=== PATIENT | male | born 1950 ===

== ENCOUNTER 2020-07-21 10:16 | Day surgery (SDC) | payer MEDICARE, BC ==
[2020-07-21] VITALS (10 sets, daily range): BP systolic 151–177; BP diastolic 85–105; PULSE 63–73; TEMP 97.4–97.9
[~2020-07-21] VITALS: Ht 177.8 cm; Wt 83.3 kg
[2020-07-21] MEDS ORDERED: ASPIRIN 32325 MG/TAB PO (11:05)
[2020-07-21] MEDS ORDERED: PRINZIDE 12.5 M1 TA1 PO (11:05)
[2020-07-21] MEDS ORDERED: TENORMIN 5050 MG/TAB PO (11:05)
[2020-07-21] MEDS ORDERED: PROTONIX 40MG T40 MG PO (11:06)
[2020-07-21] MEDS ORDERED: TYLENOL 500MG500 MG PO (11:06)
[2020-07-21] MEDS ORDERED: FLEXERIL 1010 MG/TAB PO (11:06)
[2020-07-21] MEDS ORDERED: NORCO 325 MG-51 TAB PO (12:56)
--- NOTE | 2020-07-21 13:55 | NUR ---
TO RM 5 PER CART FROM PACU. ALERT ORIENTED X3 AND TALKING TO STAFF.
--- NOTE | 2020-07-21 14:10 | NUR ---
C/O ABDOMINAL PAIN 2/10 AT CURRENT TIME. RECEIVED WATER SITTING UP AND DRINKING.
--- NOTE | 2020-07-21 14:25 | NUR ---
02 SAT 95% ON ROOM AIR. RECEIVED MUFFIN AND COFFEE.
--- NOTE | 2020-07-21 14:36 | NUR ---
RECEIVED 2ND MUFFIN. NO CHANGES.
--- NOTE | 2020-07-21 14:47 | NUR ---
B/P CONTINUES TO BE ELEVATED. B/P ELEVATED UPON ADMISSION.
--- NOTE | 2020-07-21 14:53 | NUR ---
PATIENT UP TO BATHROOM WITH ASSIST. RON ALMARAZ TALKED TO PATIENT ABOUT FOLLOW UP WITH FAMILY PHYSICAIN CONCERNING ELEVATED B/P.
--- NOTE | 2020-07-21 15:14 | NUR ---
BLOOD PRESSSURE IS CONSISTENT WITH ADMISSION BLOOD PRESSURE. PATIENT DENIES DISCOMFORT AND NAUSEA. PATIENT'S SON TO COME PICK HIM UP FROM HOSPITAL BUT SON LIVES OVER 1 HR AWAY.
--- NOTE | 2020-07-21 15:35 | NUR ---
VSS. PATIENT RESTING IN BED WITH EYES CLOSED. PATIENT RESPONDS TO QUESTIONS ASKED. DENIES DISCOMFORT AND NAUSEA.
--- NOTE | 2020-07-21 16:10 | NUR ---
VSS ON ROOM AIR. PATIENT TALKS WITHS STAFF. IV DC'D WITH CATHETER TIP INTACT. PRESSURE AND BANDAGE APPLIED. DISCHARGE INSTRUCTIONS GIVEN VERBAL AND DISCHARGE PACKET PROVIDED. QUESTIONS ANSWERED AND PATIENT VOICED UNDERSTANDING. PATIENT CHANGES INTO STREET CLOTHES.
== END 2020-07-21 16:35 | disposition home or self-care (01) ==
LOC: SDCO 10:16
DX: K40.90 Unilateral inguinal hernia, without obstruction or gangrene, not specified as recurrent (principal); I10 Essential (primary) hypertension; E78.00 Pure hypercholesterolemia, unspecified; E78.5 Hyperlipidemia, unspecified; M19.90 Unspecified osteoarthritis, unspecified site; F17.210 Nicotine dependence, cigarettes, uncomplicated; Z79.899 Other long term (current) drug therapy; Z79.82 Long term (current) use of aspirin; K21.9 Gastro-esophageal reflux disease without esophagitis
CPT/HCPCS: C1781; J0690; J1100; J1170; J1885; J2250; J2405; J2704; J3010; J7120